=== PATIENT | male | born 1945 | race Caucasian/White ===

== ENCOUNTER 2016-11-06 23:33 | Inpatient (IN) | payer MEDICARE, OTHER ==
[~2016-11-06] VITALS: Ht 172.7 cm; Wt 110.7 kg
--- NOTE | ~2016-11-06 | CON ---
[place], [place] REPORT OF CONSULTATION NAME: SALLY PINO UNIT #: [id number] ROOM: 511 DOCTOR: CHELSEA CASTRO MD BIRTHDATE: [birth year] DOS: 11/07/2016 HISTORY OF PRESENT ILLNESS: The patient is a 71-year-old -Thai man with a history of coronary artery disease; however, he tells me that Dr. Mccann had performed a heart catheterization 2 years ago and coronaries were okay and he had a stress test done in about 2013, which was read as showing some myocardial ischemia. He tells me that the no heart catheterization was performed at that time. He has essential hypertension, hyperlipidemia, and benign prostatic hypertrophy. He has had an orchiectomy and had appendectomy done in the report remote past and bilateral lens extraction and lens implantation. He has never had a stroke, heart attack, heart failure, COPD or cancer, but does have GERD. He was sitting watching TV yesterday evening when he developed a right lateral cramp-like feeling that was under the armpit, it lasted for about 5-7 minutes and resolved, couple of hours later he had a similar feeling on the left side and again lasted for about 5 minutes or so and disappeared and did not come back. He did not have any accompanying sweating, nausea, palpitation, dizziness or breathing difficulty. In the past, he recalls no exertional chest pain or undue shortness breath, palpitations, dizziness, loss of consciousness, orthopnea or swelling of the lower extremities. He does not smoke nor does he drink alcoholic beverages. HOME MEDICATIONS: Include aspirin, clopidogrel 75 daily, lisinopril 10 mg daily, metoprolol tartrate 25 mg at night, naproxen 325 mg b.i.d., Prilosec 20 mg daily, simvastatin 20 mg daily, and vitamin D 50,000 units weekly. PHYSICAL EXAMINATION: GENERAL: This revealed the patient is very pleasant, alert, oriented. He is not anemic. There is no thyromegaly or finger clubbing. VITAL SIGNS: Pulse is 60 regular, blood pressure 135/62. NECK: JVP is normal. AJR is negative. SKIN: Negative. No bruit in the neck. HEART: There is no cardiomegaly. Auscultation reveals no murmurs or rubs. EXTREMITIES: There is no edema of the lower extremity. Good pedal pulses. LUNGS: Clear to percussion and auscultation. There is no chest wall tenderness. ABDOMEN: Supple, nontender, without any bruit or pulsatile mass. LABORATORY DATA: Troponin I levels have been normal. CBC was also normal as well as basic metabolic panel. His lipid profile done previously was excellent. IMPRESSION: This patient with coronary artery disease extent of which is not known to me, had very atypical symptoms that are more in keeping with muscle spasm and myocardial ischemia. His ECG on admission was normal with a normal pattern. ECG is being repeated. If normal, no further cardiac workup would be necessary. [place], [place] REPORT OF CONSULTATION NAME: SALLY PINO UNIT #: [id number] ROOM: [facility] DOCTOR: CHELSEA CASTRO MD BIRTHDATE: [birth year] I walked him in the hallways and he walked fairly briskly without any cardiac symptoms. No chest pain or shortness of breath. I thank you for this consult. CHELSEA CASTRO MD CM:CONSTR:REPORT OF CONSULTATION 25 12/21/16 0736 interface
--- NOTE | ~2016-11-06 | EKG ---
[place], [place] ELECTROCARDIOGRAM REPORT NAME: SALLY PINO UNIT #: [id number] ROOM: 511 DOCTOR: CHELSEA CASTRO MD BIRTHDATE: [birth year] DOS: TIME: 2346 hours. Normal sinus rhythm at 60 beats per minute. The tracing is normal. No previous tracing is available for comparison. CHELSEA CASTRO MD CM:EKGRPT:ELECTROCARDIOGRAM REPORT [id number] 05 CHELSEA CASTRO MD
--- NOTE | ~2016-11-06 | EKG ---
[place], [place] ELECTROCARDIOGRAM REPORT NAME: SALLY PINO UNIT #: [id number] ROOM: 511 DOCTOR: CHELSEA CASTRO MD BIRTHDATE: [birth year] DOS: 11/07/2016 TIME: 2123 hours. Normal sinus rhythm at 58 beats per minute. The tracing is normal. No significant change from an ECG of the previous day. CHELSEA CASTRO MD CM:EKGRPT:ELECTROCARDIOGRAM REPORT [id number] 15 CHELSEA CASTRO MD
[~2016-11-06 23:33] MED LIST: ACETAMINOPHEN-H1 TA2 PO; AMPICILLIN250 MG PO; ASPIR-TRIN325 MG PO; AUGMENTIN XR1000 M1 PO; CEFOTAXIME PO; CEFTIN500 MG PO; CIPRO500 MG PO; CIPRO750 MG PO; CIPROFLOXACIN500 MG PO; DILANTIN100 MG PO; DOXYCYCLINE MO100 MG PO; FINASTERIDE5 MG PO; FLAGYL500 MG PO; FLOMAX0.4 MG PO; HYDROCODONE BIT1 T11 PO; LEVAQUIN 500 M500 M1 IV; LEVOFLOXACIN500 MG PO; LISINOPRIL10 MG PO; LISINOPRIL20 MG PO; LOPRESSOR25 MG PO; MACROBID100 M1 PO; NORCO 325 MG-101 TAB PO; OSCAL ULTRA 6001 TA1 PO; PERCOCET 325 MG1 TA5 PO; PLAVIX75 MG PO; PRILOSEC20 MG PO; PYRIDIUM100 MG PO; PYRIDIUM200 MG PO; SIMVASTATIN20 MG PO; SMZ-TMP 800 MG-1 TA2 PO; VICO10300 PO; VITAMIN D50000 I1 PO; ZESTRIL,PRINIVI10 MG PO; ZESTRIL,PRINIVI20 MG PO; ZOLOFT50 MG PO; [UNRECOGNIZED DRUG - OTHER] PO
[2016-11-06 23:41] VITALS: BP 161/77
[2016-11-06 23:50] VITALS: BP 162/83
[2016-11-07] VITALS (7 sets, daily range): BP systolic 130–143; BP diastolic 54–85
[2016-11-07] LABS: BASO # 0.1 10*3/uL (0.0-0.1); BASO % 0.8 % (0.0-1.0); EOS # 0.6 10*3/uL (0.0-0.4); EOS % 5.9 % (1.0-4.0); HEMATOCRIT 38.8 % (42.0-52.0); HEMOGLOBIN 12.8 g/dl (14.0-18.0); IG # 0.1 10*3/uL (0.0-0.1); LYMPH # 4.3 10*3/uL (1.3-4.4); MEAN CORPUSCULAR HGB 27.7 pg (27.0-31.0); MEAN PLATELET VOLUME 10.8 fl (9.6-12.3); MONO # 0.7 10*3/uL (0.1-1.0); MONO % 6.6 % (3.0-9.0); NEUT # 4.1 10*3/uL (2.3-7.9); PLATELET COUNT AUTOMATED 217 10*3/uL (130-400); RED BLOOD COUNT 4.62 10*6/uL (4.50-5.90); RED CELL DISTRI WIDTH 13.8 % (0-14.5); WHITE BLOOD COUNT 9.8 10*3/uL (4.8-10.8)
[2016-11-07 00:09] LABS: INTERNATIONAL NORM RATIO 0.9 (2.0-3.5)
[2016-11-07 00:16] LABS: ALBUMIN 3.8 gm/dl (3.1-4.5); ALKALINE PHOSPHATASE 69 U/L (45-117); BILIRUBIN, TOTAL 0.3 mg/dl (0.2-1.0); BUN 21 mg/dl (7-24); C-REACTIVE PROTEIN < 0.29 MG/DL (0-0.3); CARBON DIOXIDE 29 mmol/L (21-32); CHLORIDE 104 mmol/L (98-107); CKMB 0.7 ng/ml (0.5-3.6); CPK 133 U/L (39-308); EST GLOM FILT AFRICAN AMERICAN 57 ml/min; GLUCOSE 96 mg/dL (65-99); MAGNESIUM 2.2 mg/dL (1.5-2.1); POTASSIUM 4.1 mmol/L (3.5-5.1); SGOT/AST 20 IU/L (3-35); SGPT/ALT 23 U/L (12-78); SODIUM 141 mmol/L (136-145); TOTAL PROTEIN 6.7 gm/dL (6.4-8.2); TROPONIN I < 0.015 ng/ml (<0.5)
[2016-11-07] MEDS ORDERED: NAPROXEN375 MG PO (03:23)
[2016-11-07 06:06] LABS: BASO # 0.1 10*3/uL (0.0-0.1); BASO % 1.2 % (0.0-1.0); EOS # 0.5 10*3/uL (0.0-0.4); EOS % 7.7 % (1.0-4.0); HEMATOCRIT 38.3 % (42.0-52.0); HEMOGLOBIN 12.2 g/dl (14.0-18.0); LYMPH # 2.9 10*3/uL (1.3-4.4); LYMPH % 42.9 % (27.0-41.0); MEAN CELL VOLUME 84.4 fl (80.0-94.0); MEAN CORPUSCULAR HGB 26.9 pg (27.0-31.0); MEAN CORPUSCULAR HGB CONC 31.9 g/dl (33.0-37.0); MEAN PLATELET VOLUME 11.2 fl (9.6-12.3); MONO # 0.5 10*3/uL (0.1-1.0); MONO % 6.6 % (3.0-9.0); NEUT # 2.8 10*3/uL (2.3-7.9); NEUT % 41.3 % (47.0-73.0); PLATELET COUNT AUTOMATED 190 10*3/uL (130-400); RED BLOOD COUNT 4.54 10*6/uL (4.50-5.90); RED CELL DISTRI WIDTH 13.7 % (0-14.5); WHITE BLOOD COUNT 6.9 10*3/uL (4.8-10.8)
[2016-11-07 06:25] LABS: BUN 19 mg/dl (7-24); CARBON DIOXIDE 27 mmol/L (21-32); CHLORIDE 108 mmol/L (98-107); CHOLESTEROL 130 mg/dL (<200); EST GLOM FILT AFRICAN AMERICAN > 60 ml/min; FREE T4 1.17 ng/dl (0.76-1.46); GLUCOSE 99 mg/dL (65-99); HDL CHOLESTEROL 38 mg/dl (40-60); LDL CHOLESTEROL 64 mg/dL (9-159); MAGNESIUM 2.2 mg/dL (1.5-2.1); POTASSIUM 4.1 mmol/L (3.5-5.1); SODIUM 144 mmol/L (136-145); TRIGLYCERIDES 141 mg/dl (<150); VLDL CHOLESTEROL 28 mg/dL (6-40)
[2016-11-07 06:31] LABS: HEMOGLOBIN A1c 5.9 % (4.8-5.6)
[2016-11-07 07:47] LABS: FOLIC ACID 9.34 ng/mL (>5.38)
[2016-11-08] VITALS: BP 155/78
[2016-11-08 08:00] VITALS: BP 170/80
[2016-11-08 12:00] VITALS: BP 155/78
[2016-11-08] MEDS ORDERED: PLAVIX75 M1 PO (12:16)
[2016-11-08] MEDS ORDERED: ASPIR-TRIN325 MG PO (12:16)
== END 2016-11-08 13:51 | disposition home or self-care (01) | DRG 313 ==
LOC: ED 23:33 → EDHOLD 11-07 00:45 → 5E 11-07 01:03
PROVIDERS: Emergency Medicine; Internal Medicine
DX: R07.89 Other chest pain (principal); I25.10 Atherosclerotic heart disease of native coronary artery without angina pectoris; N17.9 Acute kidney failure, unspecified; E83.41 Hypermagnesemia; I10 Essential (primary) hypertension; E78.2 Mixed hyperlipidemia; N40.0 Benign prostatic hyperplasia without lower urinary tract symptoms; K21.9 Gastro-esophageal reflux disease without esophagitis; H40.9 Unspecified glaucoma; E66.9 Obesity, unspecified; Z98.890 Other specified postprocedural states; Z87.891 Personal history of nicotine dependence; Z80.1 Family history of malignant neoplasm of trachea, bronchus and lung; Z88.0 Allergy status to penicillin; Z79.82 Long term (current) use of aspirin; Z79.899 Other long term (current) drug therapy; Z68.37 Body mass index [BMI] 37.0-37.9, adult

== ENCOUNTER 2017-03-17 14:19 | Inpatient (IN) | payer MEDICARE, OTHER ==
[~2017-03-17] VITALS: Ht 175.3 cm; Wt 109.0 kg
--- NOTE | ~2017-03-17 | EKG ---
[place], [place] ELECTROCARDIOGRAM REPORT NAME: SALLY PINO UNIT #: [id number] ROOM: 404 DOCTOR: FATOU LEDESMA MD BIRTHDATE: [birth year] DOS: 03/17/2017 TIME: 1430 FINDINGS: 1. Normal sinus rhythm. 2. Normal axis. 3. Normal intervals. 4. Nonspecific ST-T changes. FATOU LEDESMA MD CM:EKGRPT:ELECTROCARDIOGRAM REPORT [id number] FATOU LEDESMA MD
[~2017-03-17 14:19] MED LIST changes: +NAPROXEN375 MG PO; +PLAVIX75 M1 PO
[2017-03-17 14:41] VITALS: BP 142/68
[2017-03-17 15:11] LABS: BASO % 0.5 % (0.0-1.0); EOS # 0.1 10*3/uL (0.0-0.4); EOS % 1.6 % (1.0-4.0); HEMATOCRIT 35.9 % (42.0-52.0); HEMOGLOBIN 11.7 g/dl (14.0-18.0); LYMPH # 2.2 10*3/uL (1.3-4.4); LYMPH % 24.3 % (27.0-41.0); MEAN CELL VOLUME 84.9 fl (80.0-94.0); MEAN CORPUSCULAR HGB 27.7 pg (27.0-31.0); MEAN CORPUSCULAR HGB CONC 32.6 g/dl (33.0-37.0); MEAN PLATELET VOLUME 10.3 fl (9.6-12.3); MONO # 0.7 10*3/uL (0.1-1.0); MONO % 7.4 % (3.0-9.0); NEUT # 5.8 10*3/uL (2.3-7.9); NEUT % 65.7 % (47.0-73.0); PLATELET COUNT AUTOMATED 199 10*3/uL (130-400); RED BLOOD COUNT 4.23 10*6/uL (4.50-5.90); RED CELL DISTRI WIDTH 14.6 % (0-14.5); WHITE BLOOD COUNT 8.9 10*3/uL (4.8-10.8)
[2017-03-17 15:27] LABS: ALBUMIN 3.4 gm/dl (3.1-4.5); BILIRUBIN, TOTAL 0.4 mg/dl (0.2-1.0); BUN 18 mg/dl (7-24); CARBON DIOXIDE 26 mmol/L (21-32); CHLORIDE 108 mmol/L (98-107); EST GLOM FILT AFRICAN AMERICAN > 60 ml/min; GLUCOSE 104 mg/dL (65-99); MAGNESIUM 2.2 mg/dL (1.5-2.1); PROTHROMBIN TIME 10.3 SECONDS (9.0-12.4); SGOT/AST 15 IU/L (3-35); SGPT/ALT 22 U/L (12-78); SODIUM 144 mmol/L (136-145)
[2017-03-17 15:30] LABS: ALKALINE PHOSPHATASE 69 U/L (45-117); TROPONIN I < 0.015 ng/ml (<0.045)
[2017-03-17 16:39] VITALS: BP 145/71
[2017-03-17 17:29] VITALS: BP 141/77
[2017-03-17 20:00] VITALS: BP 161/84
[2017-03-18] VITALS: BP 137/77
[2017-03-18 06:24] LABS: BASO % 0.5 % (0.0-1.0); EOS # 0.4 10*3/uL (0.0-0.4); EOS % 5.2 % (1.0-4.0); HEMATOCRIT 36.5 % (42.0-52.0); HEMOGLOBIN 11.5 g/dl (14.0-18.0); LYMPH # 2.5 10*3/uL (1.3-4.4); LYMPH % 34.1 % (27.0-41.0); MEAN CELL VOLUME 85.7 fl (80.0-94.0); MEAN CORPUSCULAR HGB CONC 31.5 g/dl (33.0-37.0); MEAN PLATELET VOLUME 10.4 fl (9.6-12.3); MONO # 0.6 10*3/uL (0.1-1.0); MONO % 7.5 % (3.0-9.0); NEUT # 3.9 10*3/uL (2.3-7.9); NEUT % 52.4 % (47.0-73.0); PLATELET COUNT AUTOMATED 184 10*3/uL (130-400); RED BLOOD COUNT 4.26 10*6/uL (4.50-5.90); RED CELL DISTRI WIDTH 14.6 % (0-14.5); WHITE BLOOD COUNT 7.4 10*3/uL (4.8-10.8)
[2017-03-18 06:54] LABS: BUN 17 mg/dl (7-24); CARBON DIOXIDE 30 mmol/L (21-32); CHLORIDE 109 mmol/L (98-107); CHOLESTEROL 107 mg/dL (<200); EST GLOM FILT AFRICAN AMERICAN > 60 ml/min; FREE T4 1.17 ng/dl (0.76-1.46); GLUCOSE 96 mg/dL (65-99); HDL CHOLESTEROL 39 mg/dl (40-60); LDL CHOLESTEROL 43 mg/dL (9-159); MAGNESIUM 2.5 mg/dL (1.5-2.1); PHOSPHOROUS 2.9 mg/dL (2.5-4.9); POTASSIUM 4.2 mmol/L (3.5-5.1); SODIUM 143 mmol/L (136-145); TRIGLYCERIDES 124 mg/dl (<150); VLDL CHOLESTEROL 25 mg/dL (6-40)
[2017-03-18 07:01] LABS: THYROID STIM HORMONE (HS) 0.458 uIU/ml (0.358-4.75)
[2017-03-18 07:02] LABS: FOLIC ACID 20.98 ng/mL (>5.38); VITAMIN D, 25-HYDROXY 41.3 ng/mL (30-100)
[2017-03-18 08:00] VITALS: BP 128/68
== END 2017-03-18 11:47 | disposition home or self-care (01) | DRG 206 ==
LOC: ED 14:19 → 4E 15:42 → EDHOLD 15:42 → 4E 16:40
PROVIDERS: Emergency Medicine; Internal Medicine
DX: M94.0 Chondrocostal junction syndrome [Tietze] (principal); E87.8 Other disorders of electrolyte and fluid balance, not elsewhere classified; E44.1 Mild protein-calorie malnutrition; D64.9 Anemia, unspecified; I25.110 Atherosclerotic heart disease of native coronary artery with unstable angina pectoris; E83.41 Hypermagnesemia; J06.9 Acute upper respiratory infection, unspecified; I10 Essential (primary) hypertension; E78.5 Hyperlipidemia, unspecified; E66.9 Obesity, unspecified; K21.9 Gastro-esophageal reflux disease without esophagitis; D72.810 Lymphocytopenia; R73.9 Hyperglycemia, unspecified; Z90.49 Acquired absence of other specified parts of digestive tract; Z82.49 Family history of ischemic heart disease and other diseases of the circulatory system; Z80.1 Family history of malignant neoplasm of trachea, bronchus and lung; Z88.0 Allergy status to penicillin; Z79.82 Long term (current) use of aspirin; Z87.891 Personal history of nicotine dependence; Z79.899 Other long term (current) drug therapy; Z68.36 Body mass index [BMI] 36.0-36.9, adult

== ENCOUNTER → 2017-03-22 | Outpatient (CLI) | payer MEDICARE, OTHER | END | disposition home or self-care (01) | LOC: US 16:00 | DX: K76.0 Fatty (change of) liver, not elsewhere classified (principal); N32.89 Other specified disorders of bladder; I10 Essential (primary) hypertension ==

== ENCOUNTER → 2017-03-23 | Outpatient (CLI) | payer MEDICARE, OTHER ==
--- NOTE | ~2017-03-23 | ST ---
[place], [place] EXERCISE STRESS TEST REPORT [id number] UNIT #: [id number] ROOM: DOCTOR: FATOU LEDESMA MD BIRTHDATE: [birth year] DOS: 03/23/2017 LEXISCAN PORTION OF THE LEXISCAN CARDIOLITE. Baseline cardiogram is sinus rhythm with nonspecific ST-T changes. A 0.4 mg Lexiscan, duration of 10 seconds. With Lexiscan, no new EKG changes. No chest pain. Blood pressure and heart rate response was normal. Nuclear images will be reported separately. FATOU LEDESMA MD CM:STRESS:EXERCISE STRESS TEST REPORT [id number] FATOU LEDESMA MD
== END | disposition home or self-care (01) ==
LOC: CARD 02:43
DX: R07.89 Other chest pain (principal)

== ENCOUNTER → 2017-12-21 | Outpatient (CLI) | payer MEDICARE, OTHER ==
[2017-12-21 10:27] LABS: CHOLESTEROL 130 mg/dL (<200); TRIGLYCERIDES 143 mg/dl (<150); VLDL CHOLESTEROL 29 mg/dL (6-40)
[2017-12-21 10:28] LABS: HDL CHOLESTEROL 37 mg/dl (40-60); LDL CHOLESTEROL 64 mg/dL (9-159)
== END | disposition home or self-care (01) ==
LOC: LAB 09:37
PROVIDERS: Internal Medicine Cardiovascular Disease
DX: E78.5 Hyperlipidemia, unspecified (principal)

== ENCOUNTER 2018-02-13 15:11 | Emergency (ER) | payer MEDICARE, OTHER ==
[~2018-02-13] VITALS: Ht 172.7 cm; Wt 108.9 kg
[2018-02-13] MEDS ORDERED: ASPIRIN325 M2 PO (15:23)
== END 2018-02-13 17:00 | disposition home or self-care (01) ==
LOC: ED 15:11
DX: S80.11XA Contusion of right lower leg, initial encounter (principal); Z87.891 Personal history of nicotine dependence; Z98.890 Other specified postprocedural states; Z95.5 Presence of coronary angioplasty implant and graft; Z79.82 Long term (current) use of aspirin; Z79.899 Other long term (current) drug therapy; Z88.0 Allergy status to penicillin; W22.8XXA Striking against or struck by other objects, initial encounter; Y93.89 Activity, other specified; Y92.89 Other specified places as the place of occurrence of the external cause; Y99.9 Unspecified external cause status

== ENCOUNTER 2018-10-30 02:59 | Emergency (ER) | payer MEDICARE, OTHER ==
[~2018-10-30] VITALS: Ht 172.7 cm; Wt 111.1 kg
[~2018-10-30 02:59] MED LIST changes: +ASPIRIN325 M2 PO
[2018-10-30 03:38] LABS: BILIRUBIN NEGATIVE (NEGATIVE); BLOOD 3+ (NEGATIVE); CLARITY CLOUDY (CLEAR); COLOR YELLOW (YELLOW); GLUCOSE NEGATIVE (NEGATIVE); KETONE TRACE (NEGATIVE); LEUKO ESTERASE NEGATIVE (NEGATIVE); NITRITE NEGATIVE (NEGATIVE); PH 5.5 (5.0-9.0); SPECIFIC GRAVITY >= 1.030 (1.005-1.030); UROBILINOGEN 0.2 E.U./dl (0.2-1.0)
[2018-10-30 03:54] LABS: BACTERIA 4+; CALCIUM OXALATE CRYSTALS 2+; RBC TNTC rbc/hpf (0-2)
[2018-10-30] MEDS ORDERED: MACROBID100 M1 PO (03:59)
[2018-12-29] MEDS ORDERED: CIPRO500 MG PO (22:38)
[2018-12-29] MEDS ORDERED: AMINOPHYLLIN200 MG PO (22:56)
== END 2018-10-30 04:10 | disposition home or self-care (01) ==
LOC: ED 02:59
PROVIDERS: Emergency Medicine
DX: N48.89 Other specified disorders of penis (principal); N39.0 Urinary tract infection, site not specified; I25.10 Atherosclerotic heart disease of native coronary artery without angina pectoris; K21.9 Gastro-esophageal reflux disease without esophagitis; I10 Essential (primary) hypertension; E66.9 Obesity, unspecified; E78.5 Hyperlipidemia, unspecified; Z88.0 Allergy status to penicillin; Z79.899 Other long term (current) drug therapy; Z79.82 Long term (current) use of aspirin; Z68.39 Body mass index [BMI] 39.0-39.9, adult; Z87.891 Personal history of nicotine dependence

== ENCOUNTER 2023-08-31 15:23 | Emergency (ER) | payer MEDICARE, OTHER ==
[~2023-08-31] VITALS: Ht 175.2 cm; Wt 104.3 kg
[~2023-08-31 15:23] MED LIST changes: +AMINOPHYLLIN200 MG PO
[2023-08-31] MEDS ORDERED: HYDROCODONE-AC1 EAC1 PO (18:50)
== END 2023-08-31 19:16 | disposition home or self-care (01) ==
LOC: ED 15:23
DX: S01.81XA Laceration without foreign body of other part of head, initial encounter (principal); S80.212A Abrasion, left knee, initial encounter; S80.211A Abrasion, right knee, initial encounter; S50.311A Abrasion of right elbow, initial encounter; M79.641 Pain in right hand; R60.0 Localized edema; Z88.0 Allergy status to penicillin; Z90.49 Acquired absence of other specified parts of digestive tract; Z98.890 Other specified postprocedural states; Z87.891 Personal history of nicotine dependence; V89.9XXA Person injured in unspecified vehicle accident, initial encounter; Y93.89 Activity, other specified; Y92.410 Unspecified street and highway as the place of occurrence of the external cause; Y99.8 Other external cause status

== ENCOUNTER → 2024-07-08 | Emergency (ER) | payer MEDICARE, OTHER ==
[~2024-07-08] VITALS: Ht 175.2 cm; Wt 104.3 kg
[~2024-07-08] MED LIST changes: +ACETAMINOPHEN 325 MG TAB PO ONE; +HYDROCODONE-AC1 EAC1 PO; +PERCOCET 5-3251 EACH PO
== END ==
LOC: ED 09:32
DX: S42.212A Unspecified displaced fracture of surgical neck of left humerus, initial encounter for closed fracture (principal); S42.202A Unspecified fracture of upper end of left humerus, initial encounter for closed fracture; I10 Essential (primary) hypertension; I25.10 Atherosclerotic heart disease of native coronary artery without angina pectoris; K21.9 Gastro-esophageal reflux disease without esophagitis; E78.00 Pure hypercholesterolemia, unspecified; Z88.0 Allergy status to penicillin; Z90.49 Acquired absence of other specified parts of digestive tract; Z98.890 Other specified postprocedural states; Z87.891 Personal history of nicotine dependence; W01.0XXA Fall on same level from slipping, tripping and stumbling without subsequent striking against object, initial encounter; Y93.89 Activity, other specified; Y92.89 Other specified places as the place of occurrence of the external cause; Y99.8 Other external cause status

== ENCOUNTER → 2024-07-26 | Outpatient (CLI) | payer MEDICARE, OTHER ==
[~2024-07-26] MED LIST changes: -ACETAMINOPHEN 325 MG TAB PO ONE
== END | disposition home or self-care (01) ==
LOC: ORTHO 00:54
PROVIDERS: ATTEND Orthopaedic Surgery
DX: S42.202D Unspecified fracture of upper end of left humerus, subsequent encounter for fracture with routine healing (principal); X58.XXXD Exposure to other specified factors, subsequent encounter

== ENCOUNTER → 2024-08-02 | Outpatient (CLI) | payer MEDICARE, OTHER | END | disposition home or self-care (01) | LOC: ORTHO 13:09 | PROVIDERS: ATTEND Orthopaedic Surgery | DX: S42.202D Unspecified fracture of upper end of left humerus, subsequent encounter for fracture with routine healing (principal); X58.XXXD Exposure to other specified factors, subsequent encounter ==

== ENCOUNTER → 2024-08-23 | Outpatient (CLI) | payer MEDICARE, OTHER | END | disposition home or self-care (01) | LOC: ORTHO 03:48 | PROVIDERS: ATTEND Orthopaedic Surgery | DX: S42.202D Unspecified fracture of upper end of left humerus, subsequent encounter for fracture with routine healing (principal); X58.XXXD Exposure to other specified factors, subsequent encounter ==